=== PATIENT | female | born 1950 | race Caucasian/White ===

== ENCOUNTER → 2023-10-26 09:47 | Outpatient (REF) | payer MEDICARE, OTHER, SELFPAY | LOC: HWWDC 09:47 | PROVIDERS: ATTENDING PHYSICIAN Emergency Medicine | DX: Z12.31 Encounter for screening mammogram for malignant neoplasm of breast (principal) | CPT/HCPCS: 77063; 77067 ==

== ENCOUNTER 2024-02-15 18:48 | Observation (INO) | payer MEDICARE, OTHER, SELFPAY ==
[2024-02-15] VITALS (8 sets, daily range): BP systolic 90–126; BP diastolic 55–104; BMI 28.4; BMI 25.1
--- NOTE | 2024-02-15 14:34 | ED.GENMED ---
History of Present Illness
General
Chief Complaint: Abdominal Symptoms
Source: patient
Exam Limitations: none
Time Seen by Provider: 02/15/24 14:29
History of Present Illness
History of Present Illness:
See MDM
Past History
Past History
ED Past Medical History: Hypothyroidism and Psychiatric
ED Past Surgical History: , Orthopedic and Other (Dental)
Social History
Tobacco: Non-smoker
Alcohol: None
Phy Exam
Physical Exam
Physical Exam:
See MDM
Course
Orders/Labs/Results
Orders:
Orders
02/15/24 14:46
CT Abd/pelvis W Iv Cont Urgent
Comment:
Reason For Exam: intermittent abd pain and constipation
02/15/24 15:34
Complete Blood Count/With Diff Urgent
Comprehensive Metabolic Panel Urgent
Lipase Urgent
02/15/24 16:35
Lorazepam [Ativan] 0.5 mg IV NOW STA
02/15/24 16:37
Lorazepam [Ativan] 2 mg .ROUTE .STK-MED ONE
02/15/24 17:39
Lactulose [Duphalac/Chronulac] 20 grams PO ONCE ONE
LevoFLOXacin 500 mg IVPB NOW LevoFLOXacin 500 MG/100 ML [Levaquin] 500 mg in 100 ml IV NOW
MetroNIDAZOLE IVPB 500 mg IVPB NOW MetroNIDAZOLE 500 MG/100 ML [Flagyl 500 mg] 100 ml IV NOW
Abnormal Lab Results
02/15/24
15:34
WBC 3.6 L 10^3/uL
(4.8-10.8)
RBC 3.77 L 10^6/uL
(4.20-5.40)
Hct 36.8 L %
(37.0-47.0)
MCH 32.6 H pg
(27.0-31.0)
RDW 16.2 H %
(11.5-14.5)
Absolute Neuts (auto) 1.2 L 10^3/uL
(1.4-6.5)
Neutrophils % 34.0 L %
(42.2-75.2)
Carbon Dioxide 31 H mmol/L
(22-30)
BUN 20 H mg/dl
(7-17)
Total Protein 6.2 L g/dl
(6.3-8.2)
02/15/24 15:34
02/15/24 15:34
Vital Signs
Initial and Last Documented VS:
Initial Vital Signs
Temp Pulse Resp BP Pulse Ox
97.3 F 83 16 117/77 97
02/15/24 14:05 02/15/24 14:05 02/15/24 14:05 02/15/24 14:05 02/15/24 14:05
Last Documented Vital Signs
Temp Pulse Resp BP Pulse Ox
98.5 F 86 16 116/65 99
02/15/24 16:41 02/15/24 16:41 02/15/24 16:41 02/15/24 16:41 02/15/24 16:41
MDM/Problems Addressed
Differential Diagnosis Includes:
HPI and MDM Narrative:
73-year-old female presenting for intermittent abdominal discomfort and constipation. Patient has been undergoing dental work for the past several months. She has had a change in diet because of this. She has had trouble passing her stools. She
is able to get rid of some pellets. She has tried enemas at home and magnesium citrate. She was sent in for possible CT of her abdomen. On exam, she has a soft nontender abdomen. Will start with rectal exam
Physical exam
General: Well appearing and non-toxic
HEENT: protecting airway
Neck: appears supple
CV: No evidence of cyanosis
Resp: No accessory muscle use
Abd: Non-distended. Soft and nontender
Rectal exam: Performed with nurse sample grinder Zahira at bedside. No stool palpated.
Extremities: No deformities
Neuro: alert
Psych: Normal affect
Skin: Intact
Problems Addressed including Acute and Chronic Conditions affecting care:
1. Constipation
Acuity: acute
Prognosis: stable
Details: Will start with rectal exam to attempt digital disimpaction
2. Colitis
Acuity: acute
Prognosis: stable
Details: Given penicillin allergy, will start Levaquin and Flagyl
Updates
No stool palpated in the rectal vault. Will obtain CT to rule out any sort of mass
CT shows significant colitis versus diverticulitis and large amount of constipation. Will give dose of lactulose and nothing else is helping her. Given the significant amount of colitis, will start Levaquin and Flagyl and admit
Differential Diagnosis (but not limited to): Constipation, colon mass
Testing considered: Obstruction series but she is passing gas
Drug therapy (if applicable): OTC meds, please see d/c instruction regarding Rx drugs
Amount and/or Complexity of Data Reviewed
Clinical info obtained from: Patient
External data reviewed: N/A
Labs I independently reviewed (but not limited to): Leukopenia
Radiology: The CT scan was personally and independently reviewed. In addition, official CT report reviewed.
Pulse Ox: not hypoxic
EKG independently reviewed: N/A
Manager Flight: N/A
Critical Care: N/A
Risk of Complication:
Social Determinants of health: Good social support
Discussed with other providers: Hospitalist
Escalation of Care includes Admit/Obs: Given the significant constipation and colitis, will admit
Occasional wrong word or 'sound a like' substitutions may have occurred due to the inherent limitations of voice recognition software. Read the chart carefully and recognize, using context, where substitutions have occurred.
*Critical Care Note
Total Time (30-74mins, 75-104mins- exclusive of procedures): Not Applicable
ED Attending Note
-
Portions of this chart may have been created with voice recognition software.� Occasional wrong word or��sound alike� substitutions may have occurred due to the inherent limitations of voice recognition software.
Discharge Plan
Departure
Patient Disposition: Admit
Date of Disposition: 02/15/24
Time of Disposition: 17:44
Admit to: Med/Surg
Presentation/result/management discussed w/ accepting MD/DO: Hospitalist
Discharge Problem:
Constipation, Diverticulitis
Referrals:
Mylene Ordoñez MD [Family Provider] -
Interventions
Interventions:
*Risk Screen - Suicide Last Done: 02/15/24 14:05
*General Assessment Last Done: 02/15/24 14:05
*Neglect/Abuse Screening Last Done: 02/15/24 14:05
ED- Fall Risk Assessment Last Done: 02/15/24 14:55
*ED COVID-19 Vaccine History Last Done: 02/15/24 14:55
GJ-Rsuuko-Leshgoxwov Assessment Last Done: 02/15/24 14:55
Discharge Date and Time
Print Language: TELUGU
[2024-02-15 15:45] LABS: Hematocrit 36.8 % (37.0-47.0); Hemoglobin 12.3 g/dL (12.0-16.0); Mean Corp Hgb Conc. 33.4 g/dL (33.0-37.0); Mean Corpuscular Hgb 32.6 pg (27.0-31.0); Mean Corpuscular Volume 97.6 fL (81.0-99.0); Platelet Count 168 10^3/uL (130-400); Red Blood Cell Count 3.77 10^6/uL (4.20-5.40); Red Cell Dist. Width 16.2 % (11.5-14.5); White Blood Cell Count 3.6 10^3/uL (4.8-10.8)
--- NOTE | 2024-02-15 16:00 | EDRN ---
the pt pressed the call dsouza and this RN entered the pts room, the pt asked at approximately what time she would go to CT scan, this RN stated that this RN was unsure of what time, the pt stated that she wanted a time and this RN notified her that
this RN would not be able to give her an exact time however this RN notified the pt that this RN would notify her of updates, this RN notified the provider, VS WNL, no s/s of distress, the pt denies needing anything at this time, the pt is resting
in the stretcher in the lowest position, side rails up x2, call dsouza within reach, HOB elevated, will continue to monitor the pt closely
[2024-02-15 16:06] LABS: ALT (SGPT) 21 U/L (0-35); AST (SGOT) 30 U/L (14-36); Albumin 3.8 g/dl (3.5-5.0); Alkaline Phosphatase 74 U/L (38-126); Blood Urea Nitrogen 20 mg/dl (7-17); Calcium 9.3 mg/dl (8.4-10.2); Carbon Dioxide 31 mmol/L (22-30); Chloride 100 mmol/L (98-107); Estimated Creatinine Clearance 62 ml/min; Glucose 94 mg/dl (70-99); Potassium 4.3 mmol/L (3.5-5.1); Sodium 139 mmol/L (135-145); Total Bilirubin 0.3 mg/dl (0.2-1.3); Total Protein 6.2 g/dl (6.3-8.2); eGFR > 60.00
[2024-02-15 16:07] LABS: Lipase 48 U/L (23-300)
[2024-02-15 16:33] LABS: % Basophils 0.6 % (0-2); % Eosinophils 5.6 % (0-6); % Immature Granulocytes 0.3 % (0-0.5); % Lymphocytes 50.3 % (20.5-51.1); % Monocytes 9.2 % (1.7-9.3); Absolute Eosinophils 0.2 10^3/uL (0-0.7); Absolute Lymphocytes 1.8 10^3/uL (1.2-3.4); Absolute Monocytes 0.3 10^3/uL (0.1-0.6); Absolute Neutrophils 1.2 10^3/uL (1.4-6.5); Nucleated Red Blood Cells % 0 %
--- NOTE | 2024-02-15 16:38 | EDRN ---
sfdc technical architect arrived to take the pt to CT scan, the pt stated she would not go unless she got something for anxiety and that she has asked for it, this RN notified the pt that she never notified this RN that she was anxious and wanted something for
anxiety, this RN notified Dr. Pham, Ativan IV will be ordered
[2024-02-15] MEDS: ATIVAN 0.5 MG IV (16:39)
--- NOTE | 2024-02-15 17:00 | EDRN ---
the pt was brought back from CT scan, the pt is resting in stretcher in the lowest position, side rails up x2, call dsouza within reach, HOB elevated, no s/s of distress, will continue to monitor the pt closely
[2024-02-15] MEDS: DUPHALAC/CHRONULAC 20 GRAMS PO (17:59)
[2024-02-15] MEDS: FLAGYL 500 MG 100 IV (17:59)
[2024-02-15] MEDS: LEVAQUIN 100 IV (17:59)
--- NOTE | 2024-02-15 18:07 | HPS.HSE ---
Family Physician
-
Family Physician: Mylene Ordoñez MD
Chief Complaint
-
constipation
History of Present Illness
73-year-old female with past medical history of hypothyroidism, depression came to the hospital with abdominal discomfort and constipation for about 2 weeks. Per patient she took enema and laxatives at home which did not improve her symptoms.
Denies any chest pain, shortness of breath. Denies any recent opioid use. CT scan was done in the ED which was concerning for colitis/diverticulitis.
Medical History
Past Medical History
Past Medical History: Reports Hypothyroidism and Other (Depression)
Past Surgical History: Reports and Orthopedic
Social History
Tobacco: Non-smoker
Alcohol: None
Family History
Family History: Not pertinent
Allergies / Home Medications
Allergies reflects when Allergies were last updated in [email or web address].
Home Medications with original date entered in [email or web address]
Allergy/Medication List:
Allergies
Allergy/AdvReac Type Severity Reaction Status Date / Time
Penicillins Allergy Unknown Verified 02/15/24 14:08
Home Medications
albuterol sulfate 90 mcg/actuation aerosol inhaler 1 puff inhalation R Q4HPRN PRN sob 02/15/24
brimonidine 0.1 % eye drops (Alphagan P) 1 drp BOTH EYES HS 02/15/24
cholecalciferol (vitamin D3) 25 mcg (1,000 unit) tablet (Vitamin D3) 25 mcg PO DAILY 02/15/24
divalproex 250 mg tablet,extended release 24 hr 250 mg PO DAILY 02/15/24
divalproex 250 mg tablet,extended release 24 hr 500 mg PO HS 02/15/24
folic acid 1 mg tablet 2 mg PO DAILY 02/15/24
gabapentin 300 mg capsule 600 mg PO BID 02/15/24
lamotrigine 100 mg tablet 100 mg PO DAILY 02/15/24
levothyroxine 175 mcg tablet 175 mcg PO DAILY 02/15/24
ondansetron 8 mg disintegrating tablet 8 mg PO DAILYPRN PRN nausea 02/15/24
selegiline 12 mg/24 hr transdermal 24 hour patch (Emsam) 1 patch transdermal DAILY 02/15/24
trazodone 50 mg tablet 50 mg PO HS 02/15/24
Review of Systems
-
History Source: Patient
A 12 point ROS was completed and negative except as noted: Yes
Abdomen/GI: Reports Abdominal Pain and Constipated
Physical Exam
Vital Signs
Vital Signs
Temp Pulse Resp BP Pulse Ox
98.5 F 86 16 116/65 99
02/15/24 16:41 02/15/24 16:41 02/15/24 16:41 02/15/24 16:41 02/15/24 16:41
Physical Exam
General: Well Nourished and No Apparent Distress
HEENT: Anicteric and Moist mucous membranes
Respiratory: Clear and Non Labored Respirations; No Wheezes
Cardiac: S1/S2 and Regular Rhythm
Breast: Deferred by me
GI: Soft, Non Tender and Non Distended
Genito-urinary: No Panda
Musculoskeletal: No Edema
Neuro: Awake, Alert, Oriented and AO x 3
Psych: Calm and Intact Judgment/Insight
Laboratory Results
-
02/15/24 15:34
02/15/24 15:34
Laboratory Results
Total Bilirubin 0.3 mg/dl (0.2-1.3) 02/15/24 15:34
AST 30 U/L (14-36) 02/15/24 15:34
ALT 21 U/L (0-35) 02/15/24 15:34
Alkaline Phosphatase 74 U/L (38-126) 02/15/24 15:34
Lipase 48 U/L (23-300) 02/15/24 15:34
Data Reviewed
-
CT Scan: Report Reviewed by me and Discussed with Patient
Lab Data: Labs Reviewed by me and Discussed with Patient
Impression/Plan
-
Abdominal discomfort likely secondary to constipation and colitis/diverticulitis
Start clears
Consult GI
Would avoid laxative at this time as it can worsen diverticulitis
Check EKG for QTc
Continue Levaquin and Flagyl
gentle hydration
History of depression
Continue with home meds
History of hypothyroidism
Check TSH with free T4
Continue Synthroid
History of hiatal hernia
DVT prophylaxis
Lovenox
Full code
--- NOTE | 2024-02-15 20:55 | PTCARENOTE ---
Pt received from ED via stretcher. Ambulated to bed independently w/o incident. Oriented to surroundings and plan of care discussed. Admission and assessment completed (refer to worklist). Pt verbalizes feeling anxious, requesting something at
this time. [employer] MACHINE FEEDER covering house contacted (electronic order received - refer to [facility] for administration). IVF infusing via #20 LAC without complication. Call dsouza within reach. Plan of care ongoing.
[2024-02-15] MEDS: NSS 1000 IV (21:04)
[2024-02-15] MEDS: NEURONTIN 600 MG PO (21:13)
[2024-02-15] MEDS: ATIVAN 0.5 MG PO (21:35)
[2024-02-15] MEDS: DESYREL 50 MG PO (22:26)
[2024-02-15] MEDS: ALPHAGAN P 0.1% EYE DROPS 1 DROP BOTH EYES (22:27)
[2024-02-15] MEDS: DEPAKOTE ER (24 HR RELEASE) 500 MG PO (22:28)
[2024-02-16] MEDS: FLAGYL 500 MG 100 IV ×3 (03:00→17:29)
[2024-02-16 06:00] VITALS: BMI 25.1
[2024-02-16] MEDS: SYNTHROID 175 MCG PO (06:37)
--- NOTE | 2024-02-16 07:40 | CON.GI ---
Addendum entered and electronically signed by Елена Arnett MD 02/16/24 13:44:
I saw and examined the patient.
The MARKET DEVELOPER's note was reviewed and I agree with the note.
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 She says that
prior to that she was having a bowel movement every day or every other day. she did take 2 bottles of magnesium citrate a few days ago and also used fleets enemas without much improvement. She had a similar episode few years ago and at that time
was thought to be related to rectal prolapse but that resolved. She does occasionally have constipation and usually resolves with lactulose. She denies any nausea or vomiting no fevers or chills. On admission CT shows constipation with possible
left-sided diverticulitis versus colitis. She is afebrile and does have leukopenia. She has been started on antibiotics also.
Assessment and plan 1. acute change in bowel habits with severe constipation for the past [address] concerning for possible diverticulitis versus less likely infectious colitis. I think her symptoms are most likely related to severe
constipation. Will give her milk of molasses enema today and a bottle of magnesium citrate, unclear etiology for the sudden onset of her constipation. she denies any recent change in medications. will check her TSH level also. Will need an
eventual colonoscopy to rule out possible obstruction her last colonoscopy was over 8 years ago and her father has history of colon cancer. Patient can follow-up with her trains service conductor in [place] or schedule with us as outpatient. She does
usually respond to lactulose so will start 3 times daily lactulose tomorrow and if still no improvement will give her Golytely. Continue antibiotics for now
2. Minimal ductal dilatation noted incidentally on CT, no gallstones noted and also her LFTs and lipase are normal, doubt significance. could repeat ultrasound as outpatient and if still dilated then will need MRI with MRCP.
Original Note:
Consultation
-
Date/Time Consultation Requested: 02/15/24 @ 18:13
Date/Time Consultation Performed: 02/16/24
Requesting Provider: Dr. Merrill Jaffe
Performing Provider: JEIMY Coleman
Reason for Consultation: colitis v diverticulitis
Medical History
Chief Complaint / HPI
Chief Complaint: constipation
History of Present Illness:
The pt is a 73 yo female with a PMH significant for hypothyroidism, major depression, who presented to the ER with complaints of constipation and abdominal pain. We are being asked to evaluate for colitis/diverticulitis. The patient reports that
for the past 2 to 3 weeks she has been having ongoing severe constipation. She notes that her normal baseline bowel habits are usually going every 1 to 2 days. She notes about a month ago while on vacation she did have an episode of constipation
which was relieved with lactulose. She also reports years ago having some constipation issues and then was taking lactulose at that time which has been the most effective medication for her. She reports that she had been having worsening abdominal
pain with cramping as of the last few days but due to the lack of bowel movement she came to the emergency room. She denies any recent changes in medications or diet. She denies any use of narcotics. She did take a dose of lactulose last night
with a small BM produced this morning. She denies any fevers, chills, nausea, vomiting, chest pain, shortness of breath, melena, hematochezia, hematemesis, unintentional weight loss, or loss of appetite. She does note that she has had some
intermittently difficult swallowing given she has been having ongoing recent dental work and has had some difficulty chewing because of this. She notes that historically she had a fungal infection in her esophagus about 2 years ago seen on EGD.
She also reports that she was taking increased amount of NSAIDs due to her dental work. Her last colonoscopy was about 8 years ago in [place], she with no prior polyps. She does have a family history of colon cancer of her father in his 60s.
She denies any use of blood thinners. Upon evaluation in the ER, she underwent a CT scan with IV contrast which showed findings Durning for possible diverticulitis versus colitis along with a large amount of fecal material and moderate distention of
the proximal colon suggesting constipation. Other findings as noted below. Routine labs on admission showed a WBC 3.6, hemoglobin 12.3, platelets 160,000, sodium 139, potassium 4.3, BUN 20, creatinine 0.9, total bilirubin 0.3, AST 30, ALT 21, alk
phos 74, lipase 48. She was started on Levaquin and Flagyl and admitted for further evaluation by GI.
Past Medical History
Past Medical History: Hypothyroidism and Psychiatric (Major depressive disorder)
Past Surgical History: (X 4) and Orthopedic (Laminectomy/cervical fusion at C6-C7, left knee replacement, foot surgery)
Social History
Tobacco: Non-Smoker
Alcohol: None
Drug: None
Family History
Family History: Cancer (Father- colon cancer)
Allergies / Home Medications
Allergy/AdvReac Type Severity Reaction Status Date / Time
Penicillins Allergy Unknown Verified 02/15/24 14:08
�Medication �Instructions �Recorded
albuterol sulfate 90 mcg/actuation 1 puff inhalation R Q4HPRN PRN sob 02/15/24
aerosol inhaler
brimonidine 0.1 % eye drops 1 drp BOTH EYES HS 02/15/24
(Alphagan P)
cholecalciferol (vitamin D3) 25 25 mcg PO DAILY 02/15/24
mcg (1,000 unit) tablet (Vitamin
D3)
divalproex 250 mg tablet,extended 250 mg PO DAILY 02/15/24
release 24 hr
divalproex 250 mg tablet,extended 500 mg PO HS 02/15/24
release 24 hr
folic acid 1 mg tablet 2 mg PO DAILY 02/15/24
gabapentin 300 mg capsule 600 mg PO BID 02/15/24
lamotrigine 100 mg tablet 100 mg PO DAILY 02/15/24
levothyroxine 175 mcg tablet 175 mcg PO DAILY 02/15/24
ondansetron 8 mg disintegrating 8 mg PO DAILYPRN PRN nausea 02/15/24
tablet
selegiline 12 mg/24 hr transdermal 1 patch transdermal DAILY 02/15/24
24 hour patch (Emsam)
trazodone 50 mg tablet 50 mg PO HS 02/15/24
Review of Systems
-
Constitutional: Reports No Symptoms
EENT: Reports No Symptoms
Respiratory: Reports No Symptoms
Cardiac: Reports No Symptoms
Abdomen/GI: Reports Abdominal Pain, Constipated and Other (difficulty chewing)
: Reports No Symptoms
Musculoskeletal: Reports No Symptoms
Skin: Reports No Symptoms
Neurological: Reports No Symptoms
Endocrine: Reports No Symptoms
Vital Signs
Temp Pulse Resp BP Pulse Ox
97.6 F 66 18 90/61 98
02/15/24 23:22 02/15/24 23:22 02/15/24 23:22 02/15/24 23:22 02/15/24 23:22
Physical Exam
Exam
General: Well Developed, Well Nourished and No Apparent Distress
HEENT: Normocephalic, Anicteric and Atraumatic
Respiratory: Clear
Cardiac: S1/S2 and Regular Rhythm
Breast: Deferred by me
GI: Soft, Non Distended, Normal Bowel Sounds and Tender (minimally tender LLQ/LUQ)
Rectal: Deferred by Provider
Musculoskeletal: No Edema
Skin: Warm and Dry
Neuro: Awake, Alert and Oriented
Psych: Calm
Results
WBC 3.6 10^3/uL (4.8-10.8) L 02/15/24 15:34
Hgb 12.3 g/dL (12.0-16.0) 02/15/24 15:34
Hct 36.8 % (37.0-47.0) L 02/15/24 15:34
MCV 97.6 fL (81.0-99.0) 02/15/24 15:34
Plt Count 168 10^3/uL (130-400) 02/15/24 15:34
Absolute Neuts (auto) 1.2 10^3/uL (1.4-6.5) L 02/15/24 15:34
Sodium 139 mmol/L (135-145) 02/15/24 15:34
Potassium 4.3 mmol/L (3.5-5.1) 02/15/24 15:34
Chloride 100 mmol/L (98-107) 02/15/24 15:34
Carbon Dioxide 31 mmol/L (22-30) H 02/15/24 15:34
BUN 20 mg/dl (7-17) H 02/15/24 15:34
Creatinine 0.9 mg/dL (0.6-1.0) 02/15/24 15:34
Calcium 9.3 mg/dl (8.4-10.2) 02/15/24 15:34
Total Bilirubin 0.3 mg/dl (0.2-1.3) 02/15/24 15:34
AST 30 U/L (14-36) 02/15/24 15:34
ALT 21 U/L (0-35) 02/15/24 15:34
Alkaline Phosphatase 74 U/L (38-126) 02/15/24 15:34
Lipase 48 U/L (23-300) 02/15/24 15:34
Diagnostic Image Results:
02/16/24 CT A/P w/ IV contrast: IMPRESSION:
1. Moderate circumferential wall thickening and submucosal edema throughout a moderate length segment of distal descending and proximal sigmoid colon in a region of moderate to severe diverticular disease. Diagnostic possibilities are (1) acute on
chronic diverticular disease (mild acute diverticulitis) or (2) an infectious colitis.
2. Large amount of fecal material and moderate distention of the more proximal colon suggesting CONSTIPATION.
3. Mild intrahepatic and extrahepatic biliary dilatation without evidence for obstruction.
4. Small hiatal hernia.
5. Severe discogenic degenerative disease at L4/L5 and L5/S1.
Prior GI Procedures:
EGD: [address], per pt had fungal infection in the esophagus
Colonoscopy: [address], no polyps per pt
Assessment / Plan
-
The pt is a 73 yo female with a PMH significant for hypothyroidism, depression, who presented to the ER with complaints of constipation and abdominal pain, found to have findings on CT scan concerning for possible colitis versus diverticulitis with
a large amount of stool in the proximal colon. She notes acute onset of constipation last 2 to 3 weeks although with remote history of constipation requiring lactulose years ago, along with constipation episode about 1 month ago on vacation. She
denies any changes in medications, changes in diet, or use of narcotics. She took a dose of lactulose last night with a small BM produced this morning. She denies any red flag symptoms such as unintentional weight loss, rectal bleeding, or
vomiting. She does have a family history of colon cancer and is overdue for colonoscopy, with her last one done 8 years ago in [place] with no polyps. She has no history of significant abdominal surgeries aside from x 4. She denies
history of bowel obstruction, prior diverticulitis, or colitis. She had been using NSAIDs more frequently given recent dental work. She also has been having some increased difficulty with swallowing due to difficulty chewing her food with her
ongoing dental work.
Problem list:
-abdominal pain
-acute constipation
-CT showing colitis v diverticulitis, moderate intra and extrahepatic biliary ductal dilation with normal LFTs
-leukopenia
-Dysphagia, likely oropharyngeal given recent dental work
Other pertinent medical history:
-major depressive disorder
-hypothyroidism
Recommendations:
-Etiology of current symptoms possibly secondary to stercoral colitis given significant constipation versus infectious colitis versus less likely diverticulitis versus other.
---Unclear etiology behind her acute onset of constipation
-Continue with antibiotics for now
-Will start on a bowel regimen as discussed with Dr. Arnett, with 1 bottle of mag citrate along with a milk of molasses enema
-Check TSH
-She will need to stay on a regular bowel regimen after the initial cleanout, start with lactulose 20g TID tomorrow
-Clear liquid diet, advance as tolerated to low residue
-She will need eventual colonoscopy as she is overdue given family history of her father had colon cancer in his 60s and unclear cause of constipation. Timing to be determined. She can determine if she wants to have this done here or or with her
doctor in [place]
-LFT's are normal, if they become abnormal or she develops pain to RUQ consider MRI (with mild biliary ductal dilation findings)
-Further plan forthcoming pending above
-
-
Thank you for consultation and allowing me to participate in the patient's care. Please call the fashion design professor GI physician during the after hours with any questions or concerns.
[2024-02-16 08:08] VITALS: BP 90/42
[2024-02-16 08:45] LABS: Hematocrit 33.7 % (37.0-47.0); Hemoglobin 11.6 g/dL (12.0-16.0); Mean Corp Hgb Conc. 34.4 g/dL (33.0-37.0); Mean Corpuscular Hgb 33.1 pg (27.0-31.0); Mean Corpuscular Volume 96.3 fL (81.0-99.0); Mean Platelet Volume 9.9 fL (7.4-10.4); Platelet Count 161 10^3/uL (130-400); White Blood Cell Count 3.1 10^3/uL (4.8-10.8)
[2024-02-16 09:10] LABS: Blood Urea Nitrogen 12 mg/dl (7-17); Calcium 8.5 mg/dl (8.4-10.2); Carbon Dioxide 28 mmol/L (22-30); Chloride 106 mmol/L (98-107); Estimated Creatinine Clearance 71 ml/min; Glucose 74 mg/dl (70-99); Potassium 4.3 mmol/L (3.5-5.1); Sodium 140 mmol/L (135-145); eGFR > 60.00
[2024-02-16 09:15] LABS: Anisocytosis Slight; Band Neutrophils 0 % (0-3); Eosinophils 7 % (0-6); Hypochromasia 1+; Lymphocytes 65 % (20-51); Monocytes 6 % (2-9); Normal RBC Morphology No; Platelets Checked Yes; Segmented Neutrophils 22 % (42-75)
[2024-02-16] MEDS: MIRALAX 17 GRAMS PO (09:15)
[2024-02-16] MEDS: CITROMA 300 ML PO (09:15)
[2024-02-16] MEDS: NEURONTIN 600 MG PO ×2 (09:15→19:46)
[2024-02-16 09:16] LABS: Acanthocytes FEW; Total Cells Counted 100
[2024-02-16] MEDS: DEPAKOTE ER (24 HR RELEASE) 250 MG PO (09:16)
[2024-02-16] MEDS: FOLVITE 2 MG PO (09:16)
[2024-02-16] MEDS: LAMICTAL 100 MG PO (09:16)
[2024-02-16] MEDS: VITAMIN D3 (cholecalciferol) 25 MCG PO (09:16)
[2024-02-16 09:17] LABS: Absolute Neutrophils -Man Diff 0.6 10^3/uL (1.4-6.5)
[2024-02-16 09:40] LABS: TSH Reflex To Free T4 4.69 uIU/ml (0.47-4.68)
[2024-02-16 10:10] LABS: Free T4 1.88 ng/dl (0.78-2.19)
[2024-02-16] MEDS: NSS IV (11:46)
[2024-02-16 12:05] VITALS: BP 110/59
--- NOTE | 2024-02-16 12:09 | W.PN.HOSP.TC ---
Today's Communication/Plan
-
monitor vitals
see plan
cw abx
clears
bowel regimen per GI
IVF
Assessment / Plan
Assessment / Plan
General: Well Nourished and No Apparent Distress
HEENT: Anicteric and Moist mucous membranes
Respiratory: Clear and Non Labored Respirations; No Wheezes
Cardiac: S1/S2 and Regular Rhythm
Breast: Deferred by me
GI: Soft, Non Tender and Non Distended
Genito-urinary: No Panda
Musculoskeletal: No Edema
Neuro: Awake, Alert, Oriented and AO x 3
Psych: Calm and Intact Judgment/Insight
Abdominal discomfort likely secondary to constipation with stercoral colitis or possible infectious colitis/diverticulitis
cw clears
Consult
Continue Levaquin and Flagyl
gentle hydration
Leukopenia suspect 2/2 infection
ANC 600; monitor
History of depression
Continue with home meds
History of hypothyroidism
TSH high but normal free t4
Continue Synthroid
History of hiatal hernia
DVT prophylaxis
Lovenox
Full code
Anticipated Discharge: Within 24 hours
Subjective/Interval History
-
Date of Service: February 16, 2024
denies nausea
Objective Data
-
Labs:
Laboratory Results
02/16/24
08:16
WBC 3.1 L
Hgb 11.6 L
Hct 33.7 L
Plt Count 161
Sodium 140
Potassium 4.3
Chloride 106
Carbon Dioxide 28
BUN 12
Creatinine 0.7
Glucose 74
Calcium 8.5
Vital Signs:
Vital Signs
Temp Pulse Resp BP Pulse Ox
97.7 F 76 18 110/59 98
02/16/24 12:05 02/16/24 12:05 02/16/24 12:05 02/16/24 12:05 02/16/24 12:05
I&O
02/15/24 02/16/24 02/17/24
06:59 06:59 06:59
Intake Total 1210 / 1210 396 / 396
Balance 1210 / 1210 396 / 396
[2024-02-16] MEDS: NSS 1000 IV (13:09)
[2024-02-16] MEDS: ATIVAN 0.5 MG PO (14:47)
[2024-02-16 15:14] VITALS: BP 119/52
--- NOTE | 2024-02-16 16:51 | CM ---
Addendum entered by Lisset Farnsworth 02/16/24 16:57:
EARL form explained; patient/spouse refused to sign
Original Note:
Met with patient and at bedside; initial assessment completed
Pharmacy verified and updated on chart: [facility] @ [address] [place] [address]
Patient and live in a 2 story home; 1 step to enter; 12 steps up to Loft; 1st floor master bath has stall shower
PLOF: independent with ambulation, stairs, and ADLs; drives; retired
NO DME
NO SNF or Home Health utilization history
will transport home
Plan: Discharge to home when medically stable; CM will monitor for needs/services
[2024-02-16] MEDS: LEVAQUIN 100 IV (19:49)
[2024-02-16] MEDS: DEPAKOTE ER (24 HR RELEASE) 500 MG PO (21:40)
[2024-02-16] MEDS: ALPHAGAN P 0.1% EYE DROPS 1 DROP BOTH EYES (21:40)
[2024-02-16] MEDS: DESYREL 50 MG PO (21:40)
--- NOTE | 2024-02-16 22:00 | PTCARENOTE ---
Pt with very large explosive BM in BR. Assisted with hygiene, linens changed. Plan of care ongoing.
[2024-02-16 23:06] VITALS: BP 96/48
[2024-02-17] MEDS: ATIVAN 0.5 MG PO (02:57)
[2024-02-17] MEDS: FLAGYL 500 MG 100 IV ×2 (02:57→10:16)
[2024-02-17 06:32] VITALS: BMI 24.9
[2024-02-17] MEDS: SYNTHROID 175 MCG PO (06:48)
[2024-02-17 07:00] VITALS: BP 109/62
[2024-02-17] MEDS: DEPAKOTE ER (24 HR RELEASE) 250 MG PO (08:22)
[2024-02-17] MEDS: FOLVITE 2 MG PO (08:22)
[2024-02-17] MEDS: NEURONTIN 600 MG PO (08:22)
[2024-02-17] MEDS: LAMICTAL 100 MG PO (08:22)
[2024-02-17] MEDS: VITAMIN D3 (cholecalciferol) 25 MCG PO (08:23)
[2024-02-17 08:56] LABS: Hematocrit 34.5 % (37.0-47.0); Hemoglobin 11.5 g/dL (12.0-16.0); Mean Corp Hgb Conc. 33.3 g/dL (33.0-37.0); Mean Corpuscular Hgb 31.6 pg (27.0-31.0); Mean Corpuscular Volume 94.8 fL (81.0-99.0); Mean Platelet Volume 10.1 fL (7.4-10.4); Platelet Count 168 10^3/uL (130-400); Red Blood Cell Count 3.64 10^6/uL (4.20-5.40); White Blood Cell Count 3.3 10^3/uL (4.8-10.8)
[2024-02-17 09:49] LABS: % Basophils 0.3 % (0-2); % Eosinophils 6.1 % (0-6); % Immature Granulocytes 0.3 % (0-0.5); % Lymphocytes 50.5 % (20.5-51.1); % Monocytes 10.7 % (1.7-9.3); % Neutrophils 32.1 % (42.2-75.2); Absolute Eosinophils 0.2 10^3/uL (0-0.7); Absolute Lymphocytes 1.7 10^3/uL (1.2-3.4); Absolute Monocytes 0.4 10^3/uL (0.1-0.6); Absolute Neutrophils 1.1 10^3/uL (1.4-6.5); Nucleated Red Blood Cells % 0 %
[2024-02-17 10:09] LABS: Blood Urea Nitrogen 8 mg/dl (7-17); Calcium 8.2 mg/dl (8.4-10.2); Carbon Dioxide 27 mmol/L (22-30); Chloride 107 mmol/L (98-107); Estimated Creatinine Clearance 71 ml/min; Glucose 71 mg/dl (70-99); Sodium 142 mmol/L (135-145); eGFR > 60.00
[2024-02-17 11:00] VITALS: BP 117/84
[2024-02-17] MEDS: NSS 1000 IV (11:52)
--- NOTE | 2024-02-17 12:00 | W.PN.HOSP.TC ---
Addendum entered and electronically signed by Merrill Jaffe MD 02/17/24 13:55:
Intra and extrahepatic bili ductal dilation, currently without any symptoms
GI follow-up outpatient
Original Note:
Today's Communication/Plan
-
Monitor vital signs
see plan
Feeling better
Now tolerating low residue diet, discharge today
Time of discharge 37 minutes
Assessment / Plan
Assessment / Plan
General: Well Nourished and No Apparent Distress
HEENT: Anicteric and Moist mucous membranes
Respiratory: Clear and Non Labored Respirations; No Wheezes
Cardiac: S1/S2 and Regular Rhythm
GI: Soft, Non Tender and Non Distended
Genito-urinary: No Panda
Musculoskeletal: No Edema
Neuro: Awake, Alert, Oriented and AO x 3
Psych: Calm and Intact Judgment/Insight
Abdominal discomfort likely secondary to constipation with stercoral colitis or possible infectious colitis/diverticulitis
autumn low res
Consult
Continue Levaquin and Flagyl; change to PO and DC
Leukopenia suspect 2/2 infection
now improving; monitor
History of depression
Continue with home meds
History of hypothyroidism
TSH high but normal free t4
Continue Synthroid
History of hiatal hernia
DVT prophylaxis
Lovenox
Full code
Anticipated Discharge: Today
Subjective/Interval History
-
Date of Service: February 17, 2024
denies pain
Objective Data
-
Labs:
Laboratory Results
02/17/24
06:13
WBC 3.3 L
Hgb 11.5 L
Hct 34.5 L
Plt Count 168
Sodium 142
Potassium 4.0
Chloride 107
Carbon Dioxide 27
BUN 8
Creatinine 0.7
Glucose 71
Calcium 8.2 L
Vital Signs:
Vital Signs
Temp Pulse Resp BP Pulse Ox
98 F 83 12 109/62 98
02/17/24 07:00 02/17/24 07:00 02/17/24 07:00 02/17/24 07:00 02/17/24 07:00
I&O
02/16/24 02/17/24 02/18/24
06:59 06:59 06:59
Intake Total 1210 / 1210 2898 / 2898
Balance 1210 / 1210 2898 / 2898
--- NOTE | 2024-02-17 12:04 | W.PN.GI.CBS2 ---
Today's Communication / Plan
-
Adv diet
OK to DC home
colo in 8 weeks
Oral antibiotics for total 7 days
Assessment / Plan
-
The pt is a 73 yo female with a PMH significant for hypothyroidism, depression, who presented to the ER with complaints of constipation and abdominal pain, found to have findings on CT scan concerning for possible colitis versus diverticulitis with
a large amount of stool in the proximal colon. She notes acute onset of constipation last 2 to 3 weeks although with remote history of constipation requiring lactulose years ago, along with constipation episode about 1 month ago on vacation. She
denies any changes in medications, changes in diet, or use of narcotics. She took a dose of lactulose last night with a small BM produced this morning. She denies any red flag symptoms such as unintentional weight loss, rectal bleeding, or
vomiting. She does have a family history of colon cancer and is overdue for colonoscopy, with her last one done 8 years ago in [place] with no polyps. She has no history of significant abdominal surgeries aside from x 4. She denies
history of bowel obstruction, prior diverticulitis, or colitis. She had been using NSAIDs more frequently given recent dental work. She also has been having some increased difficulty with swallowing due to difficulty chewing her food with her
ongoing dental work.
Problem list:
-abdominal pain
-acute constipation
-CT showing colitis v diverticulitis, moderate intra and extrahepatic biliary ductal dilation with normal LFTs
-leukopenia
-Dysphagia, likely oropharyngeal given recent dental work
Other pertinent medical history:
-major depressive disorder
-hypothyroidism
Recommendations:
-Etiology of current symptoms possibly secondary to stercoral colitis given significant constipation versus infectious colitis versus less likely diverticulitis versus other.
---Unclear etiology behind her acute onset of constipation
- Continue antibiotics can switch to oral for total 7 days
-Will start on a bowel regimen as discussed with Dr. Arnett, with 1 bottle of mag citrate along with a milk of molasses enema
- TSH mildly elevated but free T4 is normal on levothyroxine
- continue lactulose bid and tid if needed as OP
- will adv to LRD
-She will need eventual colonoscopy as she is overdue given family history of her father had colon cancer in his 60s and unclear cause of constipation.
- Will schedule colonoscopy in 6 to 8 weeks she wants to have in [place] with our group
-LFT's are normal, if they become abnormal or she develops pain to RUQ consider US/ MRI (with mild biliary ductal dilation findings)
- OK to DC home today
Subjective
Subjective
Date of Service: February 17, 2024
large BM today and yesterday, feeling much better, no further pain
Objective
Data Reviewed
Laboratory Data:
Laboratory Results
02/17/24 06:13
02/17/24 06:13
Laboratory Results
Total Bilirubin 0.3 mg/dl (0.2-1.3) 02/15/24 15:34
AST 30 U/L (14-36) 02/15/24 15:34
ALT 21 U/L (0-35) 02/15/24 15:34
Alkaline Phosphatase 74 U/L (38-126) 02/15/24 15:34
Lipase 48 U/L (23-300) 02/15/24 15:34
Vital Signs and I&O:
Vital Signs
Temp Pulse Resp BP Pulse Ox
98 F 83 12 109/62 98
02/17/24 07:00 02/17/24 07:00 02/17/24 07:00 02/17/24 07:00 02/17/24 07:00
I&O
02/16/24 02/17/24 02/18/24
06:59 06:59 06:59
Intake Total 1210 / 1210 2898 / 2898
Balance 1210 / 1210 2898 / 2898
Physical Exam
Physical Exam
Cardiology: Normal Sinus Rhythm
Pulmonary: Clear
GI: Soft, Non Distended, Non Tender and Normal Bowel Sounds
--- NOTE | 2024-02-17 13:31 | W.DCSUMMARY ---
Discharge Summary
Discharge Data
Date of Admission: 02/15/24
Date of Discharge: 02/17/24
-
Pending Results: No
Hospital Course
73-year-old female with past medical history of hypothyroidism, depression, hiatal hernia came to the hospital with abdominal discomfort which was likely thought was secondary to stercoral colitis or diverticulitis which was noted on CT scan.
Patient was initially started on IV antibiotic which were later transitioned to oral antibiotics prior to discharge. Patient was seen by gastroenterology throughout hospitalization and was recommended to get colonoscopy in 8 weeks upon discharge.
Patient was able to tolerate low residue diet prior to discharge. She also had some leukopenia which was likely thought was secondary to infection. Her symptoms continue to improve after lactulose. Gastroenterology recommended patient to use
lactulose as needed for constipation at home. Once she was able to tolerate diet and was feeling better, she was then discharged home with instructions to follow-up with all her physicians outpatient.
Discharge Plan
-
Patient Disposition: Home (Routine Discharge)
Discharge Diagnosis/Procedures: Abdominal pain likely secondary to diverticulitis or stercoral colitis
Moderate intra and extrahepatic biliary ductal dilation with normal LFTs
Leukopenia
Diet: Low Residue
Activity: As tolerated
Driving Restrictions: As prior to admission
Blood Work: CBC next week with primary care provider
Referrals:
Mylene Ordoñez MD [Family Provider] - in less than 1 week
Елена Arnett MD [Active] - in four to six weeks
Prescriptions:
New
lactulose 20 gram/30 mL Solution
20 g PO TID PRN (Reason: Constipation) Qty: 1500 0RF
levofloxacin 500 mg tablet
500 mg PO DAILY Qty: 6 0RF
metronidazole 500 mg tablet
500 mg PO Q8H 6 Days Qty: 18 0RF
Continued
levothyroxine 175 mcg Tablet
175 mcg PO DAILY
trazodone 50 mg Tablet
50 mg PO HS
ondansetron 8 mg Tablet,Disintegrating
8 mg PO DAILYPRN PRN (Reason: nausea)
gabapentin 300 mg Capsule
600 mg PO BID
folic acid 1 mg Tablet
2 mg PO DAILY
albuterol sulfate 90 mcg/actuation Hfa Aerosol Inhaler
1 puff INHALATION R Q4HPRN PRN (Reason: sob)
lamotrigine 100 mg Tablet
100 mg PO DAILY
divalproex 250 mg Tablet Extended Release 24 Hr
250 mg PO DAILY
divalproex 250 mg Tablet Extended Release 24 Hr
500 mg PO HS
brimonidine [Alphagan P] 0.1 % Drops
1 drp BOTH EYES HS
Emsam 12 mg/24 hr Patch 24 Hour
1 patch TRANSDERMAL DAILY
cholecalciferol (vitamin D3) [Vitamin D3] 25 mcg (1,000 unit) Tablet
25 mcg PO DAILY
Discharge Orders:
Discharge Patient (As Directed); Ordered 02/17/24
Ordered By: Merrill Jaffe
Discharge Date and Time
Print Language: POLISH
--- NOTE | 2024-02-17 16:11 | CM ---
MD entered order for discharge.
Family drove her home.
Offered V she declined need.
PLAN Home no needs
== END 2024-02-17 15:11 | disposition home or self-care (01) ==
LOC: 3 WEST ACU 18:48
PROVIDERS: ADMITTING PHYSICIAN Internal Medicine; CONSULT PHYSICIAN Internal Medicine Gastroenterology; EMERGENCY PHYSICIAN Student in an Organized Health Care Education/Training Program; FAMILY PHYSICIAN Emergency Medicine
DX: R10.9 Unspecified abdominal pain (principal); K59.00 Constipation, unspecified; K63.89 Other specified diseases of intestine; K83.8 Other specified diseases of biliary tract; E03.9 Hypothyroidism, unspecified; D72.819 Decreased white blood cell count, unspecified; R13.10 Dysphagia, unspecified; M51.37 Other intervertebral disc degeneration, lumbosacral region; M51.36 Other intervertebral disc degeneration, lumbar region; F32.9 Major depressive disorder, single episode, unspecified; F32.A Depression, unspecified; K44.9 Diaphragmatic hernia without obstruction or gangrene; Z80.0 Family history of malignant neoplasm of digestive organs; Z88.0 Allergy status to penicillin; Z79.890 Hormone replacement therapy; Z96.652 Presence of left artificial knee joint; Z98.1 Arthrodesis status
CPT/HCPCS: 74177; 80048; 80053; 83690; 84439; 84443; 85025; 93005; 96365; 96367; 96375; 99285; G0378; Q9967

== ENCOUNTER → 2024-05-13 08:02 | Outpatient (REF) | payer MEDICARE, OTHER, SELFPAY | LOC: PAVMRI 08:02 | PROVIDERS: ATTENDING PHYSICIAN Physical Medicine & Rehabilitation; FAMILY PHYSICIAN Emergency Medicine | DX: M75.42 Impingement syndrome of left shoulder (principal) | CPT/HCPCS: 72141; 73221 ==

== ENCOUNTER → 2024-06-04 06:20 | Day surgery (SDC) | payer MEDICARE, OTHER, SELFPAY | LOC: GI 06:20 | PROVIDERS: ATTENDING PHYSICIAN Internal Medicine Gastroenterology | DX: K57.92 Diverticulitis of intestine, part unspecified, without perforation or abscess without bleeding (principal); Z53.9 Procedure and treatment not carried out, unspecified reason; Z80.0 Family history of malignant neoplasm of digestive organs | CPT/HCPCS: 45378 ==

== ENCOUNTER → 2024-06-17 12:43 | Outpatient (REF) | payer MEDICARE, OTHER, SELFPAY | LOC: PAVMRI 12:43 | PROVIDERS: ATTENDING PHYSICIAN Specialist | DX: D32.0 Benign neoplasm of cerebral meninges (principal) | CPT/HCPCS: 70553; A9575 ==

== ENCOUNTER → 2024-08-27 09:19 | Outpatient (REF) | payer MEDICARE, OTHER, SELFPAY | LOC: WDC 09:19 | PROVIDERS: ATTENDING PHYSICIAN Nurse Practitioner Family; FAMILY PHYSICIAN Emergency Medicine | DX: N64.4 Mastodynia (principal) | CPT/HCPCS: 76642; 77062; 77066 ==

== ENCOUNTER → 2024-12-05 14:16 | Outpatient (REF) | payer MEDICARE, OTHER, SELFPAY | LOC: RAD 14:16 | PROVIDERS: ATTENDING PHYSICIAN Physician Assistant Medical; FAMILY PHYSICIAN Emergency Medicine | DX: R07.81 Pleurodynia (principal); M54.9 Dorsalgia, unspecified | CPT/HCPCS: 71111; 72072 ==